=== PATIENT | female | born 1990 | race African-American/Black ===

== ENCOUNTER 2016-07-25 08:36 | Emergency (ER) | payer BC ==
[2016-07-25] MEDS ORDERED: LIDOCAINE 2% VISC 15 ML UDC ONE (09:23)
[2016-07-25] MEDS ORDERED: ONDANSETRON ODT 4 MG TAB ONE (09:23)
[2016-07-25] MEDS ORDERED: MORPHINE 4 MG/ML SYR ONE (09:23)
== END 2016-07-25 11:02 | disposition home or self-care (01) ==
LOC: ER 08:36
CPT/HCPCS: 96372

== ENCOUNTER 2016-07-29 16:08 | Emergency (ER) | payer BC ==
[2016-07-29] MEDS ORDERED: ONDANSETRON ODT 4 MG TAB ONE (17:19)
[2016-07-29] MEDS ORDERED: DILAUDID 1 MG/ML AMP ONE (17:19)
== END 2016-07-29 17:36 | disposition home or self-care (01) ==
LOC: ER 16:08
CPT/HCPCS: 96372

== ENCOUNTER 2016-08-16 16:06 | Emergency (ER) | payer BC ==
[2016-08-16] MEDS ORDERED: OPTIRAY 350 50 ML HMH IV ONE (16:07)
[2016-08-16] MEDS ORDERED: BUPIVACAINE 0.75% PF 10ML ONE (17:20)
[2016-08-16] MEDS ORDERED: LIDOCAINE/EPI 1% MDV 20 ML ONE (17:20)
[2016-08-16] MEDS ORDERED: KETOROLAC 60 MG/2 ML VIAL IM ONE (18:36)
[2016-08-16] MEDS ORDERED: DILAUDID 1 MG/ML AMP ONE (20:02)
== END 2016-08-16 20:20 | disposition home or self-care (01) ==
LOC: ER 16:06
DX: K02.9 Dental caries, unspecified (principal); F17.210 Nicotine dependence, cigarettes, uncomplicated
CPT/HCPCS: 70487; 96372; 96374

== ENCOUNTER 2016-08-26 10:30 | Emergency (ER) | payer BC ==
[2016-08-26] MEDS ORDERED: LIDOCAINE 2% VISC 15 ML UDC ONE (12:01)
== END 2016-08-26 12:23 | disposition home or self-care (01) ==
LOC: ER 10:30
DX: K04.7 Periapical abscess without sinus (principal); K02.9 Dental caries, unspecified; F17.210 Nicotine dependence, cigarettes, uncomplicated